=== PATIENT | female | born 1990 | race Asian ===

== ENCOUNTER 2017-12-29 03:33 | Inpatient (IN) | payer SELFPAY ==
[~2017-12-29] VITALS: Ht 170 cm; Wt 52.5 kg
[2017-12-29] MEDS ORDERED: OXYTOCIN 20 UNITS in LACTATED RINGERS 1,000 ML IV SCH (05:58)
[2017-12-29] MEDS ORDERED: PREN-546 PO (05:58)
[2017-12-29] MEDS ORDERED: NALBUPHINE 10 MG/ML AMP IVP PRN (06:00)
[2017-12-29] MEDS ORDERED: METHYLERGONOVINE 0.2 MG/ML AMP IM PRN ×2 (06:00→14:30)
[2017-12-29] MEDS ORDERED: IBUPROFEN 800 MG TAB PO PRN ×2 (06:00→14:30)
[2017-12-29] MEDS ORDERED: CARBOPROST 250 MCG/ML AMP IM PRN (06:00)
[2017-12-29] MEDS ORDERED: PROMETHAZINE 25 MG/ML VIAL IVP PRN (06:00)
[2017-12-29] MEDS ORDERED: BUPIVACAINE 0.125%/NS PREMIX 250 ML ONE (06:03)
[2017-12-29] MEDS: LACTATED RINGERS 1,000 ML IV SCH ×3 (06:15→07:40)
[2017-12-29 06:56] LABS: BASOPHILS # (AUTO) 0.2 K/uL (0.00-0.22); BASOPHILS % (AUTO) 1.4 % (0.0-2.0); EOSINOPHILS # (AUTO) 0.1 K/uL (0-0.4); HEMATOCRIT 33.5 % (36-48); HEMOGLOBIN 11.1 g/dL (12.0-16.0); LYMPHOCYTES # (AUTO) 1.6 K/uL (2.5-16.5); MEAN CORPUSCULAR HEMOGLOBIN 31 pg (27-31); MEAN CORPUSCULAR HGB CONC 33 g/dL (33-37); MEAN CORPUSCULAR VOLUME 93 fL (80-94); MONOCYTES # (AUTO) 0.6 K/uL (0.8-1.0); MONOCYTES % (AUTO) 4.5 % (1.7-9.3); NEUTROPHILS # (AUTO) 10.6 K/uL (1.8-7.7); NEUTROPHILS % (AUTO) 81.1 % (42.2-75.2); PLATELET COUNT (AUTO) 157 K/uL (140-450); RED BLOOD CELL COUNT(AUTO) 3.62 MIL/uL (4.20-5.40); RED CELL DISTRIBUTION WIDTH 12.9 % (11.6-13.7); WHITE BLOOD COUNT (AUTO) 13.1 K/uL (4.8-10.8)
[2017-12-29] MEDS ORDERED: BUPIVACAINE 0.125%/NS PREMIX 250 ML EPI SCH (07:10)
[2017-12-29 07:24] LABS: ANION GAP 15.5 (8-16); CARBON DIOXIDE 21.9 mmol/L (21-32); CREATININE 0.5 mg/dL (0.6-1.3); POTASSIUM 3.4 mmol/L (3.5-5.1)
[2017-12-29 07:40] VITALS: BP 113/62
[2017-12-29 07:43] LABS: ALBUMIN 2.7 g/dL (3.4-5.0); TOTAL BILIRUBIN 0.4 mg/dL (0.0-1.0)
[2017-12-29 08:14] LABS: APPEARANCE,URINE CLEAR (CLEAR); BILIRUBIN,URINE NEGATIVE (NEGATIVE); BLOOD, URINE NEGATIVE (NEGATIVE); COLOR,URINE YELLOW (YELLOW); LEUKOCYTE ESTERASE ,URINE NEGATIVE (NEGATIVE); NITRITE, URINE NEGATIVE (NEGATIVE); PH,URINE 7.5 (5.0-9.0); UGLUCOSE NEGATIVE (NEGATIVE)
--- NOTE | 2017-12-29 09:10 | NUR ---
PATIENT HAS BEEN SCREENED AND CATEGORIZED LOW NUTRITION RISK. PATIENT WILL BE SEEN WITHIN 7 DAYS OF ADMISSION. 01/04/[address]
[2017-12-29] MEDS ORDERED: OXYTOCIN 10 UNITS/ML VIAL ONE (09:42)
[2017-12-29] MEDS ORDERED: OXYTOCIN 10 UNITS/ML VIAL IM ONE (12:00)
[2017-12-29] MEDS ORDERED: oxyCODONE/APAP 5/325 MG 1 TAB TAB PO PRN (14:30)
[2017-12-29] MEDS ORDERED: MEASLES, MUMPS, AND RUBELLA 1 VIAL SQVAC PRN (14:30)
[2017-12-29] MEDS ORDERED: HYDROcodone/APAP 5/325 MG 1 TAB TAB PO PRN (14:30)
[2017-12-29] MEDS ORDERED: TEMAZEPAM 15 MG CAP PO PRN (14:30)
[2017-12-29] MEDS ORDERED: BENZOCAINE/MENTHOL 20%-0.5% 60 GM CAN TP PRN (14:30)
[2017-12-29] MEDS ORDERED: DOCUSATE SOD/SENNA 50/8.6 MG 1 TAB PO SCH (21:00)
[2017-12-30 06:58] LABS: HEMATOCRIT 32.2 % (36-48)
[2017-12-30] MEDS ORDERED: SHARK OIL/PHENYLEPHRINE 60 GM TUBE TP PRN (14:15)
== END 2017-12-31 16:20 | disposition home or self-care (01) | DRG 775 ==
LOC: MFCC 03:33
PROVIDERS: ADMIT Obstetrics & Gynecology; ATTEND Obstetrics & Gynecology
PROC: 10E0XZZ Delivery of Products of Conception, External Approach (ICD-10-PCS; principal; 2017-12-29)
PROC: 0W8NXZZ Division of Female Perineum, External Approach (ICD-10-PCS; 2017-12-29)
DX: O80 Encounter for full-term uncomplicated delivery (principal); Z37.0 Single live birth; Z3A.38 38 weeks gestation of pregnancy
CPT/HCPCS: 36415; 51702; 80053; 81003; 85018; 85025; 86592; 86886; 86900; 86901; J2590; J3490; J7120